=== PATIENT | male | born 1970 | race American Indian/Alaskan Native ===

== ENCOUNTER 2017-11-20 14:57 | Emergency (ER) | payer SELFPAY ==
[2017-11-20 15:10] VITALS: BP 162/114
[2017-11-20] MEDS ORDERED: DELTASONE PO ONE (16:55)
--- NOTE | 2017-11-20 17:13 | Emergency Department Report ---
ED Rash HPI - HPI Chief Complaint: Skin Rash Stated Complaint: RASH Time Seen by Provider: 11/20/17 16:52 Duration: 3 Days Location: Neck, Upper Extremities Suspected Cause: Unknown Rash Symptoms: Yes Itching, No Facial Swelling, No Tongue/Oral Swelling, No Breathing Difficulties, No Choking Sensation, No Wheezing/Dyspnea, No Peeling, No Blistering, No Fever, No Lightheaded, No Malaise, No Myalgias Severity: mild Other History: Patient is a 47-year-old male who presents to ED complaining of a rash serious arm and to his right side of the neck 3 days. Patient states she does not recall, and to contact with any allergens or irritants. Patient states that rash itches sometimes but not all the time. Patient states rash is localized to one on the right lower arm insect on his right neck. Patient denies any history of eczema, fever. He denies throat pain, difficulty breathing ED Review of Systems ROS: Stated complaint: RASH Other details as noted in HPI Constitutional: denies: chills, fever Eyes: denies: eye pain, eye discharge, vision change ENT: denies: ear pain, throat pain Respiratory: denies: cough, shortness of breath, wheezing Cardiovascular: denies: chest pain, palpitations Endocrine: no symptoms reported Gastrointestinal: denies: abdominal pain, nausea, diarrhea Genitourinary: denies: urgency, dysuria Musculoskeletal: denies: back pain, joint swelling, arthralgia Skin: pruritus (sometimes). denies: rash, lesions Neurological: denies: headache, weakness, paresthesias Psychiatric: denies: anxiety, depression Hematological/Lymphatic: denies: easy bleeding, easy bruising ED Past Medical Hx - Past Medical History Previous Medical History?: Yes Additional medical history: Lymphoproliferative disease, liver transplant 2009 - Surgical History Past Surgical History?: Yes Additional Surgical History: Liver transplant 2009 - Social History Smoking Status: Never Smoker Substance Use Type: None - Medications Home Medications: Home Medications Medication Instructions Recorded Confirmed Last Taken Type Hydrocortisone 1% [Hydrocortisone 1 applicatio TP TID #1 tube 11/20/17 Unknown Rx 1% CREAM] diphenhydrAMINE [Benadryl CAP] 25 mg PO QHS PRN #20 capsule 11/20/17 Unknown Rx Rash Exam - Exam General: Vital signs noted. No distress. Alert and acting appropriately. HEENT: No Periorbital Edema, No Conjuctival Injection, No Chemosis, No Perioral Edema, No Tongue Edema, No Uvular Edema, No Compromised Airway, No Drooling Lungs: Yes Good Air Exchange (Normal Breath Sounds), No Wheezes, No Ronchi, No Stridor, No Cough, No Labored Respirations, No Retractions, No Use of Accessory Muscles, No Other Abnormal Lung Sounds Heart: Yes Regular, No Murmur Skin: Yes Maculopapular Rash, Yes Encrustations, No Urticarial Rash, No Morbilliform rash, No Bulla(e), No Excoriations, No Weeping, No Tenderness, No Erythema, No Edema, No Other Other: Positive: Abdomen Normal, Neurologic Normal, Musculoskeletal Normal ED Course Vital Signs 11/20/17 15:02 Temperature 98.8 F Pulse Rate 67 Respiratory 16 Rate Blood Pressure 162/114 O2 Sat by Pulse 96 Oximetry ED Medical Decision Making - Medical Decision Making 47-year-old male presents with nonspecific rash ED course: Patient received prednisone in the ED. Discussed with the patient that he'll be going home with Benadryl and cortisone cream to apply to the rash Discussed with patient to check surroundings at home Rashes and no specific ra and may resolve on its own. Discussed the patient is rash does not is also follow-up wit shuttleless loom weaver as referred. Patient had mild elevated blood pressure ED, discussed, discussed daily blood pressure checks. Patient was asymptomatic in the ED. No other complaints VitalSigns are normal patient is in no acute distress Critical care attestation.: If time is entered above; I have spent that time in minutes in the direct care of this critically ill patient, excluding procedure time. ED Disposition Clinical Impression: Rash and nonspecific skin eruption Disposition: DC-01 TO HOME OR SELFCARE Is pt being admited?: No Does the pt Need Aspirin: No Condition: Stable Instructions: Herpes Zoster (ED), Acute Rash (ED) Additional Instructions: Make sure to follow up with the primary care physician as discussed. Take all your medications as you've been prescribed. If you have any worsening symptoms or develop new symptoms please return to ED immediately. Prescriptions: diphenhydrAMINE [Benadryl CAP] 25 mg PO QHS PRN #20 capsule PRN Reason: Rash Hydrocortisone 1% [Hydrocortisone 1% CREAM] 1 applicatio TP TID #1 tube Referrals: PRIMARY CAREMD [Primary Care Provider] - 3-5 Days RICARDO VAUGHN MD [Staff Physician] - 3-5 Days Forms: Work/School Release Form(ED) Time of Disposition: 17:38
== END 2017-11-20 18:09 | disposition home or self-care (01) ==
LOC: ED 14:57
DX: R21 Rash and other nonspecific skin eruption (principal); Z94.4 Liver transplant status
CPT/HCPCS: 99282; J7512

== ENCOUNTER 2017-12-06 08:41 | Emergency (ER) | payer MEDICARE, OTHER ==
[2017-12-06 09:23] LABS: Basophils % (Auto) 0.1 % (0.0-1.8); Eosinophils # (Auto) 0.2 K/mm3 (0.0-0.4); Hematocrit 41.5 % (35.5-45.6); Hemoglobin 13.8 gm/dl (11.8-15.2); Lymphocytes # (Auto) 1.6 K/mm3 (1.2-5.4); Lymphocytes % (Auto) 19.8 % (13.4-35.0); Mean Corpuscular HGB Conc 33 % (32-34); Mean Corpuscular Hemoglobin 31 pg (28-32); Mean Corpuscular Volume 92 fl (84-94); Monocytes # (Auto) 1.2 K/mm3 (0.0-0.8); Monocytes % (Auto) 14.9 % (0.0-7.3); Platelet Count 246 K/mm3 (140-440); Red Blood Count 4.52 M/mm3 (3.65-5.03); Red Cell Distribution Width 14.4 % (13.2-15.2)
[2017-12-06 09:38] LABS: Alanine Aminotransferase 68 units/L (7-56); Albumin 3.7 g/dL (3.9-5); BUN/Creatinine Ratio 14; Blood Urea Nitrogen 13 mg/dL (9-20); Calcium 9.2 mg/dL (8.4-10.2); Hemolysis Index 3; Lipase 8 units/L (13-60)
[2017-12-06 10:53] LABS: Bilirubin,Urine SM (Negative); Blood,Urine NEG (Negative); Color,Urine Amber (Yellow); Mucus,Urine FEW /HPF
[2017-12-06 11:00] LABS: Ictotest,Urine Negative (Negative)
--- NOTE | 2017-12-06 13:10 | Emergency Department Report ---
ED Abdominal Pain HPI - General Chief Complaint: Abdominal Pain Stated Complaint: DEHYDRATED Time Seen by Provider: 12/06/17 12:36 Source: patient Mode of arrival: Ambulatory Limitations: No Limitations - History of Present Illness Initial Comments: 47-year-old male with a past medical history of diabetes (insulin pump), hypertension (no meds), liver failure (unknown cause) s/p liver transplant, Lymphoproliferative disease status post liver transplant 2008 presents to the hospital complaining of suprapubic cramping abdominal pain since this morning. Pain rated for septated intensity, intermittent, no aggravating or alleviating factors. Patient states "I think I am dehydrated" the triage but no place of nausea, vomiting, diarrhea, dysuria, melena, or hematochezia. Patient also reports a fever after arrival since temperature 99f orally. Rectal temp 99.7. Patient presents to the hospital with elevated blood pressure but states he has never been prescribed medications. All his doctors including his liver doctor are located in [facility]. His liver physician is Dr. Puente Severity scale (0 -10): 4 - Related Data Previous Rx's Medication Instructions Recorded Last Taken Type Hydrocortisone 1% [Hydrocortisone 1 applicatio TP TID #1 tube 11/20/17 Unknown Rx 1% CREAM] diphenhydrAMINE [Benadryl CAP] 25 mg PO QHS PRN #20 capsule 11/20/17 Unknown Rx Allergies Allergy/AdvReac Type Severity Reaction Status Date / Time No Known Allergies Allergy Unverified 12/06/17 08:56 ED Review of Systems ROS: Stated complaint: DEHYDRATED Other details as noted in HPI Comment: All other systems reviewed and negative ED Past Medical Hx - Past Medical History Previous Medical History?: Yes Hx Hypertension: Yes (no meds) Hx Diabetes: Yes Hx Liver Disease: Yes Additional medical history: Lymphoproliferative disease, liver transplant 2008 - Surgical History Past Surgical History?: Yes Additional Surgical History: Liver transplant 2008 - Social History Smoking Status: Never Smoker Substance Use Type: Non Opiate Pain - Medications Home Medications: Home Medications Medication Instructions Recorded Confirmed Last Taken Type Hydrocortisone 1% [Hydrocortisone 1 applicatio TP TID #1 tube 11/20/17 Unknown Rx 1% CREAM] diphenhydrAMINE [Benadryl CAP] 25 mg PO QHS PRN #20 capsule 04/21/18 Unknown Rx ED Physical Exam - General Limitations: No Limitations - Other Other exam information: General: No limitations, patient is alert in no acute distress Head exam: Atraumatic, normocephalic Eyes exam: Normal appearance ENT: Moist mucous membrane, normal oropharynx Neck exam: Normal inspection, full range of motion, no meningismus nontender Respiratory exam: Clear to auscultation bilateral, no wheezes, rales, crackles Cardiovascular: Normal rate and rhythm, normal heart sounds Abdomen: Soft, nondistended, and nontender, with normal bowel sounds, no rebound, or guarding Extremity: Full range of motion normal inspection no deformity Back: Normal Inspection, full range of motion, no tenderness Neurologic: Alert, oriented x3, cranial nerves intact, no motor or sensory deficit Psychiatric: normal affect, normal mood Skin: Warm, dry, intact ED Course Vital Signs 12/06/17 12/06/17 12/06/17 08:56 12:37 12:58 Temperature 99 F 98.2 F 99.7 F H Pulse Rate 92 H 89 Respiratory 20 18 Rate Blood Pressure 157/109 Blood Pressure 141/91 [Left] O2 Sat by Pulse 99 99 Oximetry - Consultations Consultation #1: 12/06/17 13:38 Attempted to speak to Dr. Puente (transplant surgeon) but he was on break. Was able to speak to Maribel clinical nurse relay shop supervisor and she was able to confirm the LFTs are at baseline. She was up on a patient will be discharged and encouraged to follow up. ED Medical Decision Making - Lab Data Result diagrams: 12/06/17 09:14 12/06/17 09:14 Lab Results 12/06/17 12/06/17 12/06/17 Range/Units 09:05 09:14 09:14 WBC 8.2 (4.5-11.0) K/mm3 RBC 4.52 (3.65-5.03) M/mm3 Hgb 13.8 (11.8-15.2) gm/dl Hct 41.5 (35.5-45.6) % MCV 92 (84-94) fl MCH 31 (28-32) pg MCHC 33 (32-34) % RDW 14.4 (13.2-15.2) % Plt Count 246 (140-440) K/mm3 Lymph % (Auto) 19.8 (13.4-35.0) % [place] % (Auto) 14.9 H (0.0-7.3) % Eos % (Auto) 2.0 (0.0-4.3) % Baso % (Auto) 0.1 (0.0-1.8) % Lymph # 1.6 (1.2-5.4) K/mm3 [place] # 1.2 H (0.0-0.8) K/mm3 Eos # 0.2 (0.0-0.4) K/mm3 Baso # 0.0 (0.0-0.1) K/mm3 Seg Neutrophils % 63.2 (40.0-70.0) % Seg Neutrophils # 5.2 (1.8-7.7) K/mm3 Sodium 135 L (137-145) mmol/L Potassium 3.9 (3.6-5.0) mmol/L Chloride 98.0 (98-107) mmol/L Carbon Dioxide 26 (22-30) mmol/L Anion Gap 15 mmol/L BUN 13 (9-20) mg/dL Creatinine 0.9 (0.8-1.5) mg/dL Estimated GFR > 60 ml/min BUN/Creatinine Ratio 14 % Glucose 202 H (75-100) mg/dL POC Glucose 192 H (70-105) Calcium 9.2 (8.4-10.2) mg/dL Total Bilirubin 4.60 H (0.1-1.2) mg/dL AST 76 H (5-40) units/L ALT 68 H (7-56) units/L Alkaline Phosphatase 421 H (35-129) units/L Total Protein 7.6 (6.3-8.2) g/dL Albumin 3.7 L (3.9-5) g/dL Albumin/Globulin Ratio 0.9 % Lipase 8 L (13-60) units/L Urine Color (Yellow) Urine Turbidity (Clear) Urine pH (5.0-7.0) Ur Specific [place] (1.003-1.030) Urine Protein (Negative) mg/dL Urine Glucose (UA) (Negative) mg/dL Urine Ketones (Negative) mg/dL Urine Blood (Negative) Urine Nitrite (Negative) Urine Bilirubin (Negative) Urine Ictotest (Negative) Urine Urobilinogen (<2.0) mg/dL Ur Leukocyte Esterase (Negative) Urine WBC (Auto) (0.0-6.0) /HPF Urine RBC (Auto) (0.0-6.0) /HPF Urine Mucus /HPF 12/06/17 Range/Units 10:33 WBC (4.5-11.0) K/mm3 RBC (3.65-5.03) M/mm3 Hgb (11.8-15.2) gm/dl Hct (35.5-45.6) % MCV (84-94) fl MCH (28-32) pg MCHC (32-34) % RDW (13.2-15.2) % Plt Count (140-440) K/mm3 Lymph % (Auto) (13.4-35.0) % [place] % (Auto) (0.0-7.3) % Eos % (Auto) (0.0-4.3) % Baso % (Auto) (0.0-1.8) % Lymph # (1.2-5.4) K/mm3 [place] # (0.0-0.8) K/mm3 Eos # (0.0-0.4) K/mm3 Baso # (0.0-0.1) K/mm3 Seg Neutrophils % (40.0-70.0) % Seg Neutrophils # (1.8-7.7) K/mm3 Sodium (137-145) mmol/L Potassium (3.6-5.0) mmol/L Chloride (98-107) mmol/L Carbon Dioxide (22-30) mmol/L Anion Gap mmol/L BUN (9-20) mg/dL Creatinine (0.8-1.5) mg/dL Estimated GFR ml/min BUN/Creatinine Ratio % Glucose (75-100) mg/dL POC Glucose (70-105) Calcium (8.4-10.2) mg/dL Total Bilirubin (0.1-1.2) mg/dL AST (5-40) units/L ALT (7-56) units/L Alkaline Phosphatase (35-129) units/L Total Protein (6.3-8.2) g/dL Albumin (3.9-5) g/dL Albumin/Globulin Ratio % Lipase (13-60) units/L Urine Color [place]ie (Yellow) Urine Turbidity Clear (Clear) Urine pH 6.0 (5.0-7.0) Ur Specific [place] 1.019 (1.003-1.030) Urine Protein 100 mg/dl (Negative) mg/dL Urine Glucose (UA) 150 (Negative) mg/dL Urine Ketones Neg (Negative) mg/dL Urine Blood Neg (Negative) Urine Nitrite Neg (Negative) Urine Bilirubin Sm (Negative) Urine Ictotest Negative (Negative) Urine Urobilinogen 4.0 (<2.0) mg/dL Ur Leukocyte Esterase Neg (Negative) Urine WBC (Auto) 1.0 (0.0-6.0) /HPF Urine RBC (Auto) 7.0 (0.0-6.0) /HPF Urine Mucus Few /HPF - Medical Decision Making abdominal pain Intermittent, mild, not reproducible. No associated symptoms. Pain free during eval No leukocytosis or fever Elevated LFTs at baseline (confirmed after speaking to office of his transplant surgeon) Elevated blood pressure Improved prior to discharge without medications Patient states he has never been prescribed medications by his doctor He will be informed to follow-up with his primary care doctor for further management of his blood pressure Patient be discharged home - Differential Diagnosis enteritis, diverticulitis, appendicitis, liver failure Critical Care Time: No Critical care attestation.: If time is entered above; I have spent that time in minutes in the direct care of this critically ill patient, excluding procedure time. ED Disposition Clinical Impression: Abdominal cramps, History of liver transplant, Elevated LFTs, Elevated blood pressure reading Disposition: TO HOME OR SELFCARE Is pt being admited?: No Does the pt Need Aspirin: No Condition: Stable Instructions: Abdominal Pain (ED), How to Take a Blood Pressure (ED) Additional Instructions: Take Motrin as needed for pain. Continue to monitor your blood pressure until your primary care doctor follow-up. Discuss whether or not medications are indicated for high blood pressure. Follow-up with your liver transplant doctor as scheduled this month. Return is symptoms worsen as indicated by your discharge instructions. Referrals: PRIMARY CARE,MD [Primary Care Provider] - 3-5 Days your, liver doctor [Other] - 3-5 Days Time of Disposition: 13:51
[2017-12-06 14:04] VITALS: BP 157/101
== END 2017-12-06 14:03 | disposition home or self-care (01) ==
LOC: ED 08:41
DX: R10.30 Lower abdominal pain, unspecified (principal); R94.5 Abnormal results of liver function studies; I10 Essential (primary) hypertension; E11.9 Type 2 diabetes mellitus without complications; Z94.4 Liver transplant status
CPT/HCPCS: 36415; 80053; 81001; 82962; 83690; 85025; 99283

== ENCOUNTER 2018-05-20 14:25 | Emergency (ER) | payer MEDICARE ==
[2018-05-20 14:44] VITALS: BP 145/93
--- NOTE | 2018-05-20 16:26 | XRay Report ---
FINAL REPORT EXAM: XR FOOT 3+V RT HISTORY: foot injury TECHNIQUE: AP, oblique and lateral radiographs of the right foot. PRIORS: None. FINDINGS: No fracture. No dislocation. Normal mineralization. No soft tissue abnormality. IMPRESSION: No acute right foot abnormality.
[2018-05-20] MEDS ORDERED: MOTRIN PO ONE (21:31)
--- NOTE | 2018-05-20 21:34 | Emergency Department Report ---
HPI - General Chief Complaint: Extremity Injury, Lower Time Seen by Provider: 05/20/18 21:14 - HPI HPI: Room 37 The patient is a 47-year-old male presenting with chief complaint of right foot pain. The patient states yesterday a pallet fell onto his right foot. The patient states today he noticed swelling and ecchymosis about the right great toe. Patient gives his pain a score of 5/10 Location: Right foot Duration: Onset yesterday Quality: Pain Severity: 5/10 Modifying factors: [see above] Context: [see above] Mode of transportation: Patient drove himself to the emergency department and there are no visitors present ED Past Medical Hx - Past Medical History Hx Hypertension: Yes (no meds) Hx Diabetes: Yes Hx Liver Disease: Yes Additional medical history: Lymphoproliferative disease, liver transplant 2008 - Surgical History Additional Surgical History: Liver transplant 2008 - Family History Family history: no significant - Social History Smoking Status: Never Smoker Substance Use Type: None (denies illicit drug use) - Medications Home Medications: Home Medications Medication Instructions Recorded Confirmed Last Taken Type Hydrocortisone 1% [Hydrocortisone 1 applicatio TP TID #1 tube 11/20/17 Unknown Rx 1% CREAM] diphenhydrAMINE [Benadryl CAP] 25 mg PO QHS PRN #20 capsule 11/20/17 Unknown Rx HYDROcodone/APAP 5-325 [[place] 1 - 2 each PO Q6HR PRN #14 tablet 05/20/18 Unknown Rx 5/325] Ibuprofen [Motrin 800 MG tab] 800 mg PO Q8HR PRN #20 tablet 05/20/18 Unknown Rx ED Review of Systems ROS: Stated complaint: (R) INJURED FOOT Other details as noted in HPI Constitutional: no symptoms reported Respiratory: no symptoms reported Endocrine: no symptoms reported Musculoskeletal: arthralgia, myalgia Skin: change in color (ecchymosis to right foot) Neurological: denies: numbness Physical Exam - Physical Exam Vital Signs: Vital Signs 05/20/18 14:39 Temperature 99.3 F Pulse Rate 97 H Respiratory 16 Rate Blood Pressure 145/93 O2 Sat by Pulse 96 Oximetry Physical Exam: GENERAL: The patient is well-developed well-nourished male sitting in chair not appear to be in acute distress. [] HEENT: Normocephalic. Atraumatic. Extraocular motions are intact. Patient has moist mucous membranes. NECK: Supple. Trachea midline CHEST/LUNGS: There is no respiratory distress noted. HEART/CARDIOVASCULAR: Regular. There is no tachycardia. 2+ right DP SKIN: There is ecchymosis about the right great toe but no lacerations or abrasions seen NEURO: The patient is awake, alert, and oriented. The patient is cooperative. The patient has normal speech MUSCULOSKELETAL: There is tenderness to palpation of the dorsum of the right foot ED Course Vital Signs 05/20/18 14:39 Temperature 99.3 F Pulse Rate 97 H Respiratory 16 Rate Blood Pressure 145/93 O2 Sat by Pulse 96 Oximetry ED Medical Decision Making - Radiology Data Radiology results: report reviewed (right foot x-ray), image reviewed (right foot x-ray) interpreted by me: Right foot x-ray-no acute fracture Findings [facility] [address] [place] [address] XRay Report Signed Patient: KASSI MONTEZ JR MR#: [id number] : 1970 Acct :[id number] Age/Sex: 47 / M ADM Date: 05/20/18 Loc: ED Attending Dr: Ordering Physician: ED MD SHANTEL Date of Service: 05/20/18 Procedure(s): XR foot 3+V RT Accession Number(s): [id number] cc: ED MD SHANTEL Fluoro Time In Minutes: FINAL REPORT EXAM: XR FOOT 3+V RT HISTORY: foot injury TECHNIQUE: AP, oblique and lateral radiographs of the right foot. PRIORS: None. FINDINGS: No fracture. No dislocation. Normal mineralization. No soft tissue abnormality. IMPRESSION: No acute right foot abnormality. Transcribed By: MG Dictated By: DEANA DUARTE MD Electronically Authenticated By: EDANA DUARTE MD Signed Date/Time: 05/20/181625 DD/ 25 TD/TT: 05/20/181625 - Differential Diagnosis right foot fracture, right foot contusion Critical care attestation.: If time is entered above; I have spent that time in minutes in the direct care of this critically ill patient, excluding procedure time. ED Disposition Clinical Impression: Contusion of right foot Disposition: DC-01 TO HOME OR SELFCARE Is pt being admited?: No Does the pt Need Aspirin: No Condition: Stable Additional Instructions: Return to the emergency department immediately should you develop worsening symptoms, fever, inability to tolerate food or liquid or any other concerns. Prescriptions: HYDROcodone/APAP 5-325 [[place] 5/325] 1 - 2 each PO Q6HR PRN #14 tablet PRN Reason: Pain Ibuprofen [Motrin 800 MG tab] 800 mg PO Q8HR PRN #20 tablet PRN Reason: Pain, Moderate (4-6) Referrals: PRIMARY CAREMD [Primary Care Provider] - 3-5 Days NOEMI WARD MD [Staff Physician] - 3-5 Days (Dr. Ward is an orthopedic surgeon. Please follow up with him for further evaluation) Time of Disposition: 21:35
== END 2018-05-20 21:46 | disposition home or self-care (01) ==
LOC: ED 14:25
DX: S90.31XA Contusion of right foot, initial encounter (principal); I10 Essential (primary) hypertension; E11.9 Type 2 diabetes mellitus without complications; Z94.4 Liver transplant status; W20.8XXA Other cause of strike by thrown, projected or falling object, initial encounter; Y93.89 Activity, other specified; Y92.89 Other specified places as the place of occurrence of the external cause; Y99.8 Other external cause status